=== PATIENT | male | born 1975 | race Caucasian/White ===

== ENCOUNTER 2016-07-09 18:17 | Observation (INO) | payer OTHER ==
[~2016-07-09] VITALS: Ht 165.1 cm; Wt 61.4 kg
[2016-07-09 18:45] VITALS: BP 133/91; PULSE 83; RESP 18; O2SAT 99
--- NOTE | 2016-07-09 19:22 | ED.REPORT ---
HPI-Chest Pain Under 40 Date of Service Jul 09, 2016 ED Provider: Ector Sanchez MD Pt is a 41 y.o. male who presents to the ED from c/o mid-sternal chest pain, worse with inspiration, onset 2 weeks ago. Pt reports associated intermittent fever (subjective) and cough. He denies leg pain, sore throat, rhinorrhea, and vomiting. He also denies recent travel, surgery, long periods of immobility, or recent sick contacts. Nursing Notes Stated Complaint: CHEST PAIN,TROUBLE BREATHING Chief Complaint: Chest Pain-Non Cardiac Nature Nursing Notes Reviewed: Yes Allergies: Coded Allergies: No Known Allergies (Unverified , 07/09/16) No Active Prescriptions or Reported Meds General Time Seen by MD: 19:22 Chief Complaint Chest pain Hx Obtained From: Patient Arrived By: Walk-in Sudden in Onset?: Yes Onset Occurred: More than a week ago... Symptom Duration: Since onset Location: : Substernal Quality: Painful Severity: Current: Moderate Similar Sx Previous: No Risk Factors )( PE Risk Stratification Risk factors reviewed Past Medical History Past Medical History Seasonal allergies PTSD hx of suicide attempts Reports: Depression Past Surgical History Reports: Appendectomy Smoking History Former Smoker Social History Alcohol Use: "Social" Drug Use: Denies drug use Occupation lives with . Works at [employer], not [employer] because of eye Ambulatory Status Independent Review of Systems Constitutional: Reports: Fever (Subjective) Respiratory: Reports: Non-productive cough Cardiovascular: Reports: Chest pain GI: Denies: Vomiting Musculoskeletal: Denies: Extremity pain Complete sys rev & neg: except as marked. Ears / Nose / Throat: Denies: Sore throat Allergy / Immune: Denies: Rhinorrhea Physical Exam Initial Vital Signs Vital Signs (First) Date Time Temp Pulse Resp B/P Pulse Ox O2 Delivery O2 Flow Rate FiO2 07/09/16 18:45 36.6 83 18 133/91 99 Initial VS: Reviewed Head / Eyes: Atraumatic, Normocephalic Abdomen / GI: No distention Extremities: Vascular intact, Neuro intact Skin: Warm, Dry, No cyanosis Neurologic: Alert, Oriented, Nonfocal Psychiatric: Mood/affect normal, Behavior normal, Normal thought content General/Constitutional: Awake, Alert, Well appearing, Well developed, Well hydrated Respiratory / Chest: Atraumatic, Breath sounds NL, Breath sounds = bilat, No respiratory distress, No rales, No rhonchi, No wheezing, No retractions, No stridor Cardiovascular: Regular rhythm, Heart sounds NL, No gallop, No murmurs, No rubs , Peripheral circulation NL Heart Rate / Rhythm: Positive: Tachycardia ENT: Atraumatic, Airway patent Dental / Gums: Positive: Dentition poor Interpretation & Diagnostics General Lab Results Interp 1: CBC - leukocytosis General Lab Results Interp 2: D-Dimer elevated CT Chest Interpretation IMPRESSION: 1. 2 nodules in the right upper lobe with indistinct margins. The findings are nonspecific and the differential includes atypical infection such as from septic emboli or fungal infection, inflammatory processes such as Frantz's, or neoplasm. Recommend correlation clinically and short-term followup to demonstrate resolution. 2. No evidence of central pulmonary embolism. Dictated by: Ramos Reese M.D. on 07/09/2016 at 20:24 Approved by: Ramos Reese M.D. on 07/09/2016 at 20:29 Re-Eval/Medical Decision Med Decision/Clinical Course 41-year-old male presenting complaining of pleuritic chest pain 2 weeks. Reports subjective fevers for one week. Evaluated in urgent care today and they performed extensive labs with normal troponins, white blood cell count 11,000, d-dimer 1.2. Labs are in the chart. Afebrile here. Sent over for CT angina chest which showed 2 right upper lobe nodules broad differential including septic emboli, atypical infection, inflammatory, Frantz's. Patient has very poor dentition but denies IV drug use. Cannot rule out septic emboli. Discussed with hospitalist and we will admit for echocardiogram in the morning. Blood cultures sent. Given one dose Rocephin, azithromycin. Source of Hx: Old records Re-Evaluation/Progress #1: Time of Eval: 21:04 Re-Evaluation/Progress Note: Pt rechecked. Discussed imaging results and recommendation of admit for work-up. Re-Evaluation/Progress #2: Time of Eval: 21:55 Re-Evaluation/Progress Note: Pt rechecked. Discussed plan to admit, pt understands and agrees with plan. Consultation : Referral / Consult Name: Nicole Willis DO Consulted With: Hospitalist Call Returned at: 21:48 Digital Advertising Specialist: Will see patient, Accepts admit Note: Consulted Dr. Willis about pt's CT results, she recommends admit for further work-up. Counseled Regarding: Diagnosis Discharge & Departure Primary Impression: Non-cardiac chest pain Additional Impression: Pulmonary nodules Disposition: ADMITTED TO HOSPITAL Discharge Condition All VS Reviewed: Yes Condition: Stable Referrals: NOPCP (PCP) [facility] Giovanna Attestation Portions of this note were transcribed by Bryce Esposito. I, Dr. Sanchez personally performed the history, physical exam and medical decision-making; I reviewed and confirmed the accuracy of the information in the transcribed note. Signed by: Giovanna Pacheco, 07/09/16 and 4167. copies to: [facility] Ector Sanchez MD Jul 09, 2016 19:22 BRYCE ESPOSITO Jul 09, 2016 19:40
[2016-07-09 19:23] VITALS: BP 123/87; PULSE 74; RESP 17; O2SAT 98
--- NOTE | 2016-07-09 20:31 | DRSVH ---
PROCEDURE: CT ANGIO CHEST PULMONARY EMBOLISM ([id number]) INDICATIONS: CHEST PAIN TECHNIQUE: After the administration of intravenous contrast, 2 mm thick sections acquired from the pulmonary api ben to the posterior costophrenic angles. 3-dimensional maximum intensity projection (MIP) coronal a nd sagittal reformats were then acquired through the thorax. For radiation dose reduction, the follo wing was used: automated exposure control, adjustment of mA and/or kV according to patient size. COMPARISON: [facility], CR, XR CHEST 2VW, 07/09/2016, 12:39. FINDINGS: Image quality: Excellent. Pulmonary arteries: Pulmonary arteries are normal in size, and demonstrate no intraluminal filling d efects to suggest central pulmonary embolism. Lungs and pleura: There are 2 nodular opacities in the right upper lobe with irregular indistinct ma rgins and peripheral groundglass opacity. These measure up to 1.5 cm and 1.2 cm. Mild dependent ate lectasis is also noted. No pleural effusions or pneumothorax. Central and peripheral airways are pa tent. Mediastinum: Heart size is normal, without pericardial effusion. No mediastinal or hilar adenopathy . Thoracic aorta is normal in caliber and enhancement. Esophagus is normal in caliber, without hiat al hernia. Bones and chest wall: No suspicious bony lesions. Ribs and thoracic spine appear intact throughout. No axillary or supraclavicular adenopathy. Abdomen: Visualized upper abdominal solid organs appear normal in the early arterial phase of enhanc ement. IMPRESSION: 1. 2 nodules in the right upper lobe with indistinct margins. The findings are nonspecific and the differential includes atypical infection such as from septic emboli or fungal infection, inflammatory processes such as Frantz's, or neoplasm. Recommend correlation clinically and short-term followup to demonstrate resolution. 2. No evidence of central pulmonary embolism. Dictated by: Ramos Reese M.D. on 07/09/2016 at 20:24 Approved by: Ramos Reese M.D. on 07/09/2016 at 20:29
[2016-07-09] MEDS ORDERED: Polyethylene Glycol (PEG) 17 Gm Powder PO PRN ×2 (21:55→23:55)
[2016-07-09] MEDS ORDERED: Ondansetron 2 mg/mL 2 mL Inj IVPUSH PRN ×2 (21:55→23:55)
[2016-07-09] MEDS ORDERED: Alum-Mag Hydrox-Simeth 30 mL Suspension PO PRN ×2 (21:55→23:55)
[2016-07-09] MEDS ORDERED: cefTRIAXone Inj 2,000 MG in Dextrose 5% Minibag Plus 50 ML IV ONE (22:00)
[2016-07-09] MEDS: Azithromycin Inj 500 MG in Dextrose 5% 250 ML IV ONE ×2 (22:42→23:28)
[2016-07-09 23:30] VITALS: BP 116/82; PULSE 89; RESP 20; O2SAT 98
[2016-07-09 23:41] VITALS: BP 128/85; PULSE 90; RESP 20; O2SAT 100
[2016-07-09 23:50] VITALS: PULSE 92
[2016-07-09] MEDS ORDERED: guaiFENesin DM 200-20 mg/10 mL Syrup PO PRN (23:55)
[2016-07-10] VITALS (8 sets, daily range): BP systolic 113–133; BP diastolic 69–86; PULSE 68–97; RESP 18–20; O2SAT 96–98
[2016-07-10] MEDS: Heparin 5,000 Unit/mL Inj SUBQ SCH ×3 (00:29→18:04)
--- NOTE | 2016-07-10 03:27 | PCM.HPMED ---
Subjective Date of Service Jul 10, 2016 Primary Provider: Admitting Physician: Nicole Willis DO Primary Care Physician: Marianela Attending Physician: Nicloe Willis DO Chief Complaint: Chest pain History of Present Illness: Patient is a 41-year-old male with no reported significant past medical history presenting as a referral from Urgent Care for chest pain. The patient is accompanied by his at bedside at time of visit. The patient reports onset of chest pain approximately one week ago. Patient's chest pain is mid-sternal and describes the pain as sharp and "constriction" like without radiation. Patient reports the pain is exacerbated by coughing and denies any similar pain in the past. Patient states the pain is not relieved by anything. Patient went to Urgent Care for evaluation and underwent chest x-ray, d-dimer and Troponin. Troponin was negative but d-dimer was 1.2 and the patient was subsequently referred to [facility] ED with concern of pulmonary embolism. CT chest angiography in the ED did not identify pulmonary embolism but identified two nodular opacities in the right upper lobe with irregular indistinct margins and peripheral groundglass opacity.Patient denies recent sick contacts. He has lived in [facility] and [place] most of his life without any recent travel. He currently owns several cats, guinea pigs and a ilia. Patient endorses fever and some shortness of breath but otherwise denies nausea, emesis, rhinorrhea, sore throat, hemoptysis, diaphoresis, lightheadedness, dizziness, rash, acute vision change. In the ED, vitals: temp 36.6, HR 83, BP 133/91. Labs from Urgent Care: WBC 11.4 , Hgb 13.5, Hct 40.6. platelets 403. Na 143, K 4.7, Cl 103, creatinine 0.67, glucose 95. AST 15, ALT 14, Alk phos 78. T bili 0.3. D-dimer 1.2, troponin< 0.010. Review of Systems: A comprehensive review of systems was conducted with the patient and found to be negative except as above in the History of Present Illness. Allergies Coded Allergies: No Known Allergies (Unverified , 07/09/16) Home Medications Ibuprofen PRN PMH None reported . Surgical History Appendectomy Family History Mother with diabetes is alive at 24-ifhld-upu Father in his 60s with Alzheimer's, CVA, MA and diabetes Social History Occupation: Works at [employer] Hx Alcohol Use: Yes (Seldom) Hx Substance Use: No Hx Tobacco Use: No Smoking Status: Former Smoker (Quit 2004) Living Arrangement: with Family Exam Vital Signs Vital Sign - Last Date Time Temp Pulse Resp B/P Pulse Ox O2 Delivery O2 Flow Rate FiO2 07/09/16 23:41 36.7 90 20 128/85 100 Room Air Exam General: Patient sitting upright in bed. No acute distress, well-developed, well -nourished, appropriately interactive HEENT: Normocephalic, atraumatic. External ears without defect. Pupils equal, round, and reactive to light and accommodation. Anicteric sclerae, moist conjunctivae, and no lid lag. Moist, pink mucosa. Poor dentition with decay. Neck: Supple. No lymphadenopathy or thyromegaly. Cardiovascular: Regular rate and rhythm with no murmurs, rubs, or gallops appreciated Pulmonary: Clear to auscultation bilaterally with no crackles, wheezes, or rhonchi. Normal respiratory effort with no use of accessory muscles. Cough on deep inspiratory effort. Abdomen: Bowel tones present. Soft, nontender, nondistended Extremities: No clubbing, cyanosis, edema, or lymphadenopathy appreciated. Skin: Mild erythematous rash on cheeks and across bridge of nose. Normal temperature, turgor, and texture; no rash, ulcers, or subcutaneous nodules appreciated. Neurological: Cranial nerves grossly intact. Psychiatric: Normal mood and affect. Alert and oriented to person, place, and time. Lab and Diagnostics X-Rays, CTs and MRIs Date of Service: 07/09/161922 PROCEDURE: CT ANGIO CHEST PULMONARY EMBOLISM ([id number]) INDICATIONS: CHEST PAIN TECHNIQUE: After the administration of intravenous contrast, 2 mm thick sections acquired from the pulmonary apices to the posterior costophrenic angles. 3-dimensional maximum intensity projection (MIP) coronal and sagittal reformats were then acquired through the thorax. For radiation dose reduction, the following was used: automated exposure control, adjustment of mA and/or kV according to patient size. COMPARISON: [facility], CR, XR CHEST 2VW, 07/09/2016, 12:39. FINDINGS: Image quality: Excellent. Pulmonary arteries: Pulmonary arteries are normal in size, and demonstrate no intraluminal filling defects to suggest central pulmonary embolism. Lungs and pleura: There are 2 nodular opacities in the right upper lobe with irregular indistinct margins and peripheral groundglass opacity. These measure up to 1.5 cm and 1.2 cm. Mild dependent atelectasis is also noted. No pleural effusions or pneumothorax. Central and peripheral airways are patent. Mediastinum: Heart size is normal, without pericardial effusion. No mediastinal or hilar adenopathy. Thoracic aorta is normal in caliber and enhancement. Esophagus is normal in caliber, without hiatal hernia. Bones and chest wall: No suspicious bony lesions. Ribs and thoracic spine appear intact throughout. No axillary or supraclavicular adenopathy. Abdomen: Visualized upper abdominal solid organs appear normal in the early arterial phase of enhancement. IMPRESSION: 1. 2 nodules in the right upper lobe with indistinct margins. The findings are nonspecific and the differential includes atypical infection such as from septic emboli or fungal infection, inflammatory processes such as Frantz's, or neoplasm. Recommend correlation clinically and short-term followup to demonstrate resolution. 2. No evidence of central pulmonary embolism. Dictated by: Ramos Reese M.D. on 07/09/2016 at 20:24 Approved by: Ramos Reese M.D. on 07/09/2016 at 20:29 Assessment & Plan Patient is a 41-year-old male with no reported significant past medical history presenting as a referral from Urgent Care for chest pain. 1. Acute chest pain. Present on admission. Active -EKG NSR with HR 88. No ST-elevation or depression. -Troponin<0.010. Repeat -Unlikely cardiac etiology. Possibly secondary to cough from URI -Telemetry -Echocardiogram 2. Right upper lobe pulmonary nodules seen on chest CT. Present on admission. Active -CT chest angio shows two nodular opacities in the right upper lobe with irregular indistinct margins and peripheral groundglass opacity -Etiology possibly infectious, malignancy, benign, low TB risk, minimal exposure aside from family pets, no recent weight loss -ECHO initial assessment septic emboli, no h/o IVDU however poor dentition -f/u BC 3. Acute cough. Present on admission. Active -Likely secondary to URI -Pending: Respiratory virus PCR, procalcitonin -Guaifenesin DM PRN -Continue azithromycin and ceftriaxone. De-escalate with results of pending studies Patient Status: Patient is admitted under observation status with expected length of stay less than 2 midnights due to risk of adverse event, and complexity of treatment plan. VTE Prophylaxis: Sub-Q Heparin (Unfractionated) Resuscitation Status: CPR: Attempt Resuscitation Attending Statement The patient was seen and examined together with house staff on 07/09/2016 and I agree with the history, exam and plan as outlined in the note above. Raheel Soares DO Jul 10, 2016 02:02 Nicole Willis DO Jul 10, 2016 04:03
--- NOTE | 2016-07-10 05:10 | NUR ---
NOC/Admit Observed pt having SOB and pain. States that it aggravates when he coughs or breath deeply. Pt states that the pain is localized and just on his ride side chest. Pt denies n/v or abd discomfort. Telemetry put on and on Sinus Rhythm 70 per monitor robert. VSS, afebrile overnight. Viral PCR and UA sent to lab. Will continue to monitor.
[2016-07-10 05:15] LABS: BASOPHILS % (AUTO) 0.2 % (0-3); EOSINOPHILS % (AUTO) 1.7 % (0-5); MONOCYTES % (AUTO) 9.2 % (4-12); Mean Corpuscular Hemoglobin 30.5 pg (27.0-35.0); Mean Corpuscular Volume 88.4 fL (81-100); NEUTROPHILS % (AUTO) 72.1 % (40-74); Platelet Count 356 bil/L (150-400)
[2016-07-10] MEDS ORDERED: Influenza (Adult) Vaccine 0.5 mL Syringe IM ONE (08:30)
--- NOTE | 2016-07-10 12:51 | DRSVH ---
Formerly [facility] [address] [place] [address] Echocardiogram Report Name: JOCELYNE HENSLEY RStudy Date: 07/10/2016 Height: 65 in Hospital Exam Location: [facility] Weight: 135 lb Gender: Male BSA: 1.7 m2 : 1975 Age: 41 yrs BP: 118/69 mmHg Reason For Study: Chest pain Ordering Physician: Performed By: Buddy Flores Referring Physician: SARA GIPSON Interpretation Summary The left ventricle is normal in size, wall thickness, and systolic function without any focal wall motion abnormalities. The ejection fraction is estimated to be 60-65%. The right ventricle is normal in size, thickness and function. Pulmonary artery pressures cannot be estimated because of the lack of a measurable TR jet velocity. The left atrial size is normal. Right atrium is small. There is no significant valvular heart disease. The aortic root is normal size. Procedure: A two-dimensional transthoracic echocardiogram with color flow and Doppler was performed. The study quality was technically adequate. There is no prior echocardiogram noted for this patient. The patient was in normal sinus rhythm during the exam. Left Ventricle: The left ventricle is normal in size, wall thickness, and systolic function without any focal wall motion abnormalities. The ejection fraction is estimated to be 60-65%. Assessment of diastolic parameters indicates normal left ventricular diastolic function and normal filling pressures. Right Ventricle: The right ventricle is normal in size, thickness and function. Atria: The left atrial size is normal. Right atrium is small. The interatrial septum is intact with no evidence for an atrial septal defect. Mitral Valve: The mitral valve is normal. There is no mitral regurgitation noted. Aortic Valve: The aortic valve is normal in structure and function. No aortic regurgitation is present. Tricuspid Valve: The tricuspid valve is normal. Pulmonary artery pressures cannot be estimated because of the lack of a measurable TR jet velocity. Pulmonic Valve: The pulmonic valve leaflets are thin and pliable; valve motion is normal. There is a trace or physiologic amount of pulmonic regurgitation. There is no significant valvular heart disease. Great Vessels: The aortic root is normal size. The dimensions of the ascending aorta are normal. The pulmonary artery is normal size. The IVC is of normal diameter and collapses greater than 50% with a sniff. This suggests a low right atrial pressure of 3 mm Hg. Pericardium/ Pleura There is no pericardial effusion. There is no pleural effusion. MMode/2D Measurements & Calculations LVIDd: 4.2 cm RA long axis LVOT diam: 2.1 cm LVIDs: 3.0 cm LA A2 area: 11.9 cm AoV Opening FS: 28.5 % LA A4 area: 14.4 cm RA area IVSd: 0.83 cm LA length (vol) Ao root diam LVPWd: 0.74 cm : 10.8 cm LA vol: 35.9 ml RA vol asc Aorta Diam LA vol index : 22.5 ml RA Ao Arch Diam (Prox : 21.5 ml/m2 : 13.5 mm2 Trans): 2.5 cm LV thacker. diameter/BSA LV sys. diameter/BSA (cm/m^2): 2.5 (cm/m^2): 1.8 Doppler Measurements & Calculations Ao V2 max: 109.5 cm/sec MV E max tesfaye MV E/A: 1.6 PA V2 max Ao max P.8 mmHg : 65.4 cm/sec : 78.9 cm/sec Ao mean P.7 mmHg MV A max tesfaye PA mean PG LVOT Max Tesfaye : 40.5 cm/sec : 1.3 mmHg : 100.3 cm/sec MIS(I,D): 3.0 cm sev ratio: 0.86 MV dec time: 0.12 sec Ao V2 mean LV V1 max PG PA V2 mean : 77.8 cm/sec : 56.1 cm/sec Ao V2 VTI: 19.9 cmLV V1 VTI PA pr(Accel) MIS(V,D): 3.2 cm2 : 17.2 cm : 24.5 mmHg MIS indexed to BSA (cm^2/m^2): 1.8 Reading Physician:UMM
--- NOTE | 2016-07-10 14:29 | NUR ---
Social Work Screen Note: SW met with patient at bedside to discuss discharge plan. Patient is a 41 year old male admitted under observation status on 07/09/16 for chest pain. Patient listed as Self pay but patient presented SW with ID card information of BS:[id number]. Patient states having no PCP. Patient states residing in [facility] with significant other , . Patient states pharmacy of choice as [facility]. Patient states having no move coordinator disability insurance nor VA benefits. Patient has no previous HHC, SNF, DME, or AD history. Patient states being independent with needs and has no anticipated discharge needs at this time. SW contacted admitting and left voice mail message regarding patient insurance information. SW to follow. PLAN: Home with SO, via POV. No anticipated discharge needs at this time. SW will continue to follow. Brandon LEISE
--- NOTE | 2016-07-10 17:05 | PCM.PNMED ---
Subjective Date of Service Jul 10, 2016 Subjective Patient reports that he continues extreme experience chest pain, which she describes as a constricting type sensation. He reports that the pain is also noted in the middle of his sternum without any radiation. He states that the pain is constant and worsens with any cough, sneeze, movement. Patient denies any change in his pain from the previous day. Patient denies any drug use. Patient states that the pain has been present for the past 1 week and has not seen any improvement. Patient denies any shortness of breath, nausea, vomiting , diarrhea, fever or chills. Exam Vital Signs Vital Sign - Last Date Time Temp Pulse Resp B/P Pulse Ox O2 Delivery O2 Flow Rate FiO2 07/10/16 16:28 36.3 79 18 113/74 97 Room Air Exam General: No acute distress, well-developed, well-nourished, appropriately interactive HEENT: Normocephalic, atraumatic. External ears without defect. Anicteric sclerae, moist conjunctivae. Moist, pink mucosa. Poor dentition with decay and numerous missing teeth Neck: Supple. Cardiovascular: Regular rate and rhythm. Possible mild systolic murmur auscultated- best heard at the left upper sternal edge. No rubs or gallops appreciated Pulmonary: Clear to auscultation bilaterally with no crackles, wheezes, or rhonchi. Normal respiratory effort with no use of accessory muscles. Abdomen: Bowel tones present. Soft, nontender, nondistended Extremities: No clubbing, cyanosis, edema Skin: Normal temperature, turgor, and texture; no rash, ulcers, or subcutaneous nodules appreciated. Psychiatric: Normal mood and affect. Alert and oriented to person, place, and time. IVs and Medications Medications Reviewed: Medications were reviewed in detail Lab and Diagnostics Result Diagram: 07/10/16 0500 07/10/16 0500 X-Rays, CTs and MRIs Date of Service: 07/09/161922 PROCEDURE: CT ANGIO CHEST PULMONARY EMBOLISM ([id number]) INDICATIONS: CHEST PAIN TECHNIQUE: After the administration of intravenous contrast, 2 mm thick sections acquired from the pulmonary apices to the posterior costophrenic angles. 3-dimensional maximum intensity projection (MIP) coronal and sagittal reformats were then acquired through the thorax. For radiation dose reduction, the following was used: automated exposure control, adjustment of mA and/or kV according to patient size. COMPARISON: [facility], CR, XR CHEST 2VW, 07/09/2016, 12:39. FINDINGS: Image quality: Excellent. Pulmonary arteries: Pulmonary arteries are normal in size, and demonstrate no intraluminal filling defects to suggest central pulmonary embolism. Lungs and pleura: There are 2 nodular opacities in the right upper lobe with irregular indistinct margins and peripheral groundglass opacity. These measure up to 1.5 cm and 1.2 cm. Mild dependent atelectasis is also noted. No pleural effusions or pneumothorax. Central and peripheral airways are patent. Mediastinum: Heart size is normal, without pericardial effusion. No mediastinal or hilar adenopathy. Thoracic aorta is normal in caliber and enhancement. Esophagus is normal in caliber, without hiatal hernia. Bones and chest wall: No suspicious bony lesions. Ribs and thoracic spine appear intact throughout. No axillary or supraclavicular adenopathy. Abdomen: Visualized upper abdominal solid organs appear normal in the early arterial phase of enhancement. IMPRESSION: 1. 2 nodules in the right upper lobe with indistinct margins. The findings are nonspecific and the differential includes atypical infection such as from septic emboli or fungal infection, inflammatory processes such as Frantz's, or neoplasm. Recommend correlation clinically and short-term followup to demonstrate resolution. 2. No evidence of central pulmonary embolism. Dictated by: Ramos Reese M.D. on 07/09/2016 at 20:24 Approved by: Ramos Reese M.D. on 07/09/2016 at 20:29 Assessment & Plan Patient is a 41-year-old male with no reported significant past medical history presenting as a referral from Urgent Care for chest pain. 1. Acute chest pain. Present on admission. Active -EKG NSR with HR 88. No ST-elevation or depression. -Troponin negative 2 continuing to trend every 6 -Unlikely cardiac etiology. Possibly secondary to cough from URI -Telemetry -Echocardiogram-demonstrating no valvular disease and normal EF of 60-65% -Exercise stress test ordered -Pt started on daily aspirin 81 mg -CRP ordered and UDS 2. Right upper lobe pulmonary nodules seen on chest CT. Present on admission. Active -CT chest angio shows two nodular opacities in the right upper lobe with irregular indistinct margins and peripheral groundglass opacity -Etiology possibly infectious, malignancy, benign, low TB risk, minimal exposure aside from family pets, no recent weight loss -ECHO -demonstrating no valvular disease and normal EF of 6065% -Blood cultures with no growth to date 3. Acute cough. Present on admission. Active -Likely secondary to URI -Respiratory panel negative, strep pneumo negative, Legionella negative -Guaifenesin DM PRN -Continue antibiotics, and switch to by mouth levofloxacin before discharge Patient Status: Patient is admitted under observation status with expected length of stay less than 2 midnights due to risk of adverse event, and complexity of treatment plan. VTE Prophylaxis: Sub-Q Heparin (Unfractionated) Resuscitation Status: CPR: Attempt Resuscitation Attending Statement The patient was seen and examined together with Dr. Carcamo on 07/10/2016 and I agree with the history, exam and plan as outlined in the note above. Patience Carcamo DO Jul 10, 2016 17:05 César Wolfe MD Jul 11, 2016 12:50
--- NOTE | 2016-07-10 19:59 | NUR ---
Pain Patient reporting continued chest pain, increasing with cough or deep breathing. Patient also reporting "a caffeine headache". Patient has intermittent, non-productive cough. Refused guaifenesin. Addendum: 07/10/16 at 2006 by CONSTANTINE KELLY RN Patient unable to have stress test due to caffeine intake this morning.
[2016-07-10] MEDS ORDERED: cefTRIAXone Inj 2,000 MG in Dextrose 5% Minibag Plus 50 ML IV SCH (22:00)
[2016-07-11 00:29] VITALS: BP 109/66; PULSE 75; RESP 18; O2SAT 98
[2016-07-11] MEDS: Heparin 5,000 Unit/mL Inj SUBQ SCH ×3 (01:02→16:30)
[2016-07-11 01:35] VITALS: PULSE 72
[2016-07-11 02:50] LABS: BASOPHILS % (AUTO) 0.5 % (0-3); EOSINOPHILS % (AUTO) 2.9 % (0-5); MONOCYTES % (AUTO) 9.5 % (4-12); Mean Corpuscular Hemoglobin 29.6 pg (27.0-35.0); Mean Corpuscular Volume 88.3 fL (81-100); NEUTROPHILS % (AUTO) 66.7 % (40-74); Platelet Count 400 bil/L (150-400)
[2016-07-11 04:00] VITALS: PULSE 77
[2016-07-11 05:17] VITALS: BP 119/77; PULSE 72; RESP 18; O2SAT 97
--- NOTE | 2016-07-11 06:29 | NUR ---
Chest pain free: Pt stable throughout the night. No complaints of chest pain. Pt's only complaint has been a headache r/t being off of caffeine. SR on the monitor. Pt NPO. Troponins negative.
[2016-07-11 11:02] VITALS: PULSE 80
--- NOTE | 2016-07-11 12:19 | DRSVH ---
PROCEDURE: 1 DAY TREADMILL STRESS TEST Rest and exercise myocardial perfusion SPECT with gated imaging and ejection fraction RADIOPHARMACEUTICAL: 8.7 mCi Tc-99m tetrafosmin IV at rest and 25.5 mCi Tc-99m tetrafosmin IV at peak exercise. [id number] was performed. INDICATIONS: 41-year-old man with chest pain. The patient has history of coronary artery disease. He is a formal smoker. TECHNIQUE: Radiopharmaceutical was injected at peak stress test, and also at rest. SPECT images wer e obtained. SPECT myocardial perfusion images were displayed in short axis, horizontal long axis, an d vertical long axis views. Gated images were reviewed using [employer] software. COMPARISON: None. CARDIAC STRESS: A standard Tor treadmill exercise tolerance test was performed by the patient under the supervision of an attending staff. The patient exercised for 10 minutes and 19 seconds; functional aerobic impa irment (SHEN) is +20 %. Hemodynamic data: There is normal blood pressure and heart rate response to exercise stress. Patien t achieved 104% of maximum predicted heart rate at peak exercise. Symptoms: Patient had mid to right chest pressure chest with deep inspiration only during exercise, which was resolved in recovery. EKG: No diagnostic EKG changes of ischemia; occasional PVCs. FINDINGS: Raw data: There is good myocardial labeling by radiotracer. No significant motion artifacts. Left ventricle function: Gated images demonstrate normal left ventricle wall thickening. No segment al wall motion abnormality. No transient ischemic dilation. The left ventricle resting end-diastoli c volume is normal. Left ventricle stress ejection fraction is greater than 70%; normal values are a kamille 45%. Myocardial perfusion: There is normal distribution of activity in the left and right ventricular mikel cardium. No fixed or reversible perfusion defects. IMPRESSION: 1. Normal myocardial perfusion images. 2. Normal left ventricular volume and systolic function. 3. Reduced exercise capacity. Patient had mid to right sternal chest pressure during exercise with de ep inspiration. No diagnostic EKG changes for ischemia. PQRS ATTESTATIONS: Measure 322 - Is this imaging test primarily performed on a low-risk surgery patient for preoperative evaluation within 30 days preceding their low-risk non-cardiac surgery? Low-risk surgery is defined as cardiac or myocardial infarction less than 1%, including (but not limited to) endoscopic pr ocedures, superficial procedures, cataract surgery, and excisional breast surgery: Answer: No Measure 323 - Is this imaging test performed primarily for the monitoring of an asymptomatic patient who had percutaneous coronary intervention on the visit date or within 2 years of the visit date? An swer: No Measure 324 - Is this imaging test performed primarily for the initial detection and risk assessment on an asymptomatic, low coronary heart disease patient? Low CHD risk definition = clinicians should consider the maximum number of available patient factors used to estimate risk based on [place] (A TP III criteria), typically age, gender, diabetes, smoking status, and use of blood pressure medicati on, and integrate age appropriate estimates for missing elements, such as LDL or standard blood press ure. Answer: No Dictated by: Myke Breen M.D. on 07/11/2016 at 12:10 Approved by: Myke Breen M.D. on 07/11/2016 at 12:17
[2016-07-11 14:12] VITALS: BP 136/70; PULSE 92; RESP 18; O2SAT 96
[2016-07-11] MEDS ORDERED: LEVO750T39 PO (14:40)
--- NOTE | 2016-07-11 14:44 | PCM.DIMED ---
Patience Carcamo DO 07/11/16 1444: Discharge Instructions Date of Service Jul 11, 2016 Dates of Hospitalization Jul 09, 2016 at 22:23 Discharge Diagnosis Discharge Diagnosis 1. Acute chest pain. Present on admission. Active 2. Right upper lobe pulmonary nodules seen on chest CT. Present on admission. Active 3. Acute cough. Present on admission. Active Diet No restrictions Activity No restrictions Call your provider Fever or Chills, Shortness of breath, Bleeding, Chest pain, Vomitting, Excessive diarrhea, Weakness (unilateral), Other Patient Instructions Your stress test was normal. We think your chest is likely due to your coughing. We are prescribing a course of antibiotics to be taken for the next 6 days, to complete a 7 days course of treatment. Please follow up with your primary care provider. Follow-up Provider: César Villegas MD 07/19/16 1411: Patience Carcamo DO Jul 11, 2016 14:44 César Wolfe MD Jul 19, 2016 14:11
--- NOTE | 2016-07-11 14:54 | NUR ---
Social Work: Discharge Data: Pt is on day 2 of hospitalization. EMR reviewed. D/C orders are in. No further d/c planning needs anticipated at this time. [employer] will continue to follow if needs arise. Assessment: Pt who is independent at baseline. Plan: Pt will d/c home via POV today. No further d/c planning needs anticipated at this time. [employer] will continue to follow if needs arise. GOSIA Baird
--- NOTE | 2016-07-11 18:04 | NUR ---
Discharge Patient ambulated from unit accompanied by staff and family. Patient alert and oriented x 3. Denies current chest pain shortness of breath or nausea. Exhibiting good appetite and elimination. Ambulating independently in room. Discharge instructions/medications reviewed with patient/family prior to discharge. All questions addressed. Patient belongings, discharge instructions and medications in hand.
--- NOTE | 2016-07-12 22:36 | PCM.DC.MED ---
Discharge Summary Date of Service Jul 12, 2016 Dates of Hospitalization Date of Hospital Admission Jul 09, 2016 at 22:23 Date of Discharge: Jul 11, 2016 Providers: Admitting Physician: Nicole Willis DO Primary Care Physician: Nopcp Attending Physician: Nicole Willis DO Diagnosis at Time of Discharge Diagnosis at Time of Discharge 1. Acute chest pain. Present on admission. Active 2. Right upper lobe pulmonary nodules seen on chest CT. Present on admission. Active 3. Acute cough. Present on admission. Active Procedures XRay, CTs & MRIs Date of Service: 07/09/161922 PROCEDURE: CT ANGIO CHEST PULMONARY EMBOLISM ([id number]) INDICATIONS: CHEST PAIN TECHNIQUE: After the administration of intravenous contrast, 2 mm thick sections acquired from the pulmonary apices to the posterior costophrenic angles. 3-dimensional maximum intensity projection (MIP) coronal and sagittal reformats were then acquired through the thorax. For radiation dose reduction, the following was used: automated exposure control, adjustment of mA and/or kV according to patient size. COMPARISON: [facility], , XR CHEST 2VW, 07/09/2016, 12:39. FINDINGS: Image quality: Excellent. Pulmonary arteries: Pulmonary arteries are normal in size, and demonstrate no intraluminal filling defects to suggest central pulmonary embolism. Lungs and pleura: There are 2 nodular opacities in the right upper lobe with irregular indistinct margins and peripheral groundglass opacity. These measure up to 1.5 cm and 1.2 cm. Mild dependent atelectasis is also noted. No pleural effusions or pneumothorax. Central and peripheral airways are patent. Mediastinum: Heart size is normal, without pericardial effusion. No mediastinal or hilar adenopathy. Thoracic aorta is normal in caliber and enhancement. Esophagus is normal in caliber, without hiatal hernia. Bones and chest wall: No suspicious bony lesions. Ribs and thoracic spine appear intact throughout. No axillary or supraclavicular adenopathy. Abdomen: Visualized upper abdominal solid organs appear normal in the early arterial phase of enhancement. IMPRESSION: 1. 2 nodules in the right upper lobe with indistinct margins. The findings are nonspecific and the differential includes atypical infection such as from septic emboli or fungal infection, inflammatory processes such as Frantz's, or neoplasm. Recommend correlation clinically and short-term followup to demonstrate resolution. 2. No evidence of central pulmonary embolism. Dictated by: Ramos Reese M.D. on 07/09/2016 at 20:24 Approved by: Ramos Reese M.D. on 07/09/2016 at 20:29 Cardiac Echo Impression Interpretation Summary The left ventricle is normal in size, wall thickness, and systolic function without any focal wall motion abnormalities. The ejection fraction is estimated to be 60-65%. The right ventricle is normal in size, thickness and function. Pulmonary artery pressures cannot be estimated because of the lack of a measurable TR jet velocity. The left atrial size is normal. Right atrium is small. There is no significant valvular heart disease. The aortic root is normal size. Other Diagnostics PROCEDURE: 1 DAY TREADMILL STRESS TEST Rest and exercise myocardial perfusion SPECT with gated imaging and ejection fraction RADIOPHARMACEUTICAL: 8.7 mCi Tc-99m tetrafosmin IV at rest and 25.5 mCi Tc-99m tetrafosmin IV at peak exercise. [id number] was performed. INDICATIONS: 41-year-old man with chest pain. The patient has history of coronary artery disease. He is a formal smoker. TECHNIQUE: Radiopharmaceutical was injected at peak stress test, and also at rest. SPECT images were obtained. SPECT myocardial perfusion images were displayed in short axis, horizontal long axis, and vertical long axis views. Gated images were reviewed using Attentio software. COMPARISON: None. CARDIAC STRESS: A standard Tor treadmill exercise tolerance test was performed by the patient under the supervision of an attending staff. The patient exercised for 10 minutes and 19 seconds; functional aerobic impairment (SHEN) is +20 %. Hemodynamic data: There is normal blood pressure and heart rate response to exercise stress. Patient achieved 104% of maximum predicted heart rate at peak exercise. Symptoms: Patient had mid to right chest pressure chest with deep inspiration only during exercise, which was resolved in recovery. EKG: No diagnostic EKG changes of ischemia; occasional PVCs. FINDINGS: Raw data: There is good myocardial labeling by radiotracer. No significant motion artifacts. Left ventricle function: Gated images demonstrate normal left ventricle wall thickening. No segmental wall motion abnormality. No transient ischemic dilation. The left ventricle resting end-diastolic volume is normal. Left ventricle stress ejection fraction is greater than 70%; normal values are above 45%. Myocardial perfusion: There is normal distribution of activity in the left and right ventricular myocardium. No fixed or reversible perfusion defects. IMPRESSION: 1. Normal myocardial perfusion images. 2. Normal left ventricular volume and systolic function. 3. Reduced exercise capacity. Patient had mid to right sternal chest pressure during exercise with deep inspiration. No diagnostic EKG changes for ischemia. PQRS ATTESTATIONS: Measure 322 - Is this imaging test primarily performed on a low-risk surgery patient for preoperative evaluation within 30 days preceding their low-risk non- cardiac surgery? Low-risk surgery is defined as cardiac or myocardial infarction less than 1%, including (but not limited to) endoscopic procedures, superficial procedures, cataract surgery, and excisional breast surgery: Answer : No Measure 323 - Is this imaging test performed primarily for the monitoring of an asymptomatic patient who had percutaneous coronary intervention on the visit date or within 2 years of the visit date? Answer: No Measure 324 - Is this imaging test performed primarily for the initial detection and risk assessment on an asymptomatic, low coronary heart disease patient? Low CHD risk definition = clinicians should consider the maximum number of available patient factors used to estimate risk based on [place] ( ATP III criteria), typically age, gender, diabetes, smoking status, and use of blood pressure medication, and integrate age appropriate estimates for missing elements, such as LDL or standard blood pressure. Answer: No Dictated by: Myke Breen M.D. on 07/11/2016 at 12:10 Approved by: Myke Breen M.D. on 07/11/2016 at 12:[address] Soares's H&P "Patient is a 41-year-old male with no reported significant past medical history presenting as a referral from Urgent Care for chest pain. The patient is accompanied by his at bedside at time of visit. The patient reports onset of chest pain approximately one week ago. Patient's chest pain is mid- sternal and describes the pain as sharp and "constriction" like without radiation. Patient reports the pain is exacerbated by coughing and denies any similar pain in the past. Patient states the pain is not relieved by anything. Patient went to Urgent Care for evaluation and underwent chest x-ray, d-dimer and Troponin. Troponin was negative but d-dimer was 1.2 and the patient was subsequently referred to [facility] ED with concern of pulmonary embolism. CT chest angiography in the ED did not identify pulmonary embolism but identified two nodular opacities in the right upper lobe with irregular indistinct margins and peripheral groundglass opacity.Patient denies recent sick contacts. He has lived in [facility] and [place] most of his life without any recent travel. He currently owns several cats, guinea pigs and a ilia. Patient endorses fever and some shortness of breath but otherwise denies nausea, emesis , rhinorrhea, sore throat, hemoptysis, diaphoresis, lightheadedness, dizziness, rash, acute vision change. In the ED, vitals: temp 36.6, HR 83, BP 133/91. Labs from Urgent Care: WBC 11.4 , Hgb 13.5, Hct 40.6. platelets 403. Na 143, K 4.7, Cl 103, creatinine 0.67, glucose 95. AST 15, ALT 14, Alk phos 78. T bili 0.3. D-dimer 1.2, troponin< 0.010." Hospital Course Patient is a 41-year-old male with no reported significant past medical history presenting as a referral from Urgent Care for chest pain. 1. Acute chest pain. Present on admission. Active -EKG NSR with HR 88. No ST-elevation or depression. -Troponin negative 2 -Unlikely cardiac etiology. Possibly secondary to cough from URI -Echocardiogram-demonstrating no valvular disease and normal EF of 60-65% -Exercise stress test normal -Pt started on daily aspirin 81 mg 2. Right upper lobe pulmonary nodules seen on chest CT. Present on admission. Active -CT chest angio shows two nodular opacities in the right upper lobe with irregular indistinct margins and peripheral groundglass opacity -Etiology possibly infectious, malignancy, benign, low TB risk, minimal exposure aside from family pets, no recent weight loss -ECHO -demonstrating no valvular disease and normal EF of 6065% -Blood cultures with no growth to date 3. Acute cough. Present on admission. Active -Likely secondary to URI -Respiratory panel negative, strep pneumo negative, Legionella negative -Pt discharged on PO Levaquin, for complete course of 7 days. Exam Vital Signs (Last) Date Time Temp Pulse Resp B/P Pulse Ox O2 Delivery O2 Flow Rate FiO2 07/11/16 14:12 36.5 92 18 136/70 96 Room Air Exam General: No acute distress, well-developed, well-nourished, appropriately interactive HEENT: Normocephalic, atraumatic. External ears without defect. Anicteric sclerae, moist conjunctivae. Moist, pink mucosa. Poor dentition with decay and numerous missing teeth Neck: Supple. Cardiovascular: Regular rate and rhythm. Possible mild systolic murmur auscultated- best heard at the left upper sternal edge. No rubs or gallops appreciated Pulmonary: Clear to auscultation bilaterally with no crackles, wheezes, or rhonchi. Normal respiratory effort with no use of accessory muscles. Abdomen: Bowel tones present. Soft, nontender, nondistended Extremities: No clubbing, cyanosis, edema Skin: Normal temperature, turgor, and texture; no rash, ulcers, or subcutaneous nodules appreciated. Psychiatric: Normal mood and affect. Alert and oriented to person, place, and time. Test 07/10/16 00:30 07/10/16 00:35 07/10/16 01:15 07/10/16 05:00 Urine Legionella pneumophilia Ag Negative (Negative) Hold Urine Received (Received) Urine Opiates Screen Negative Urine Methadone Screen Negative Urine Barbiturates Screen Negative Urine Amphetamines Screen Negative Urine Benzodiazepines Screen Negative Urine Cocaine Metabolite Screen Negative Urine Cannabinoids Screen Negative Procalcitonin 0.06ng/mL (0.00-0.08) C-Reactive Protein 2.0mg/dL (0.0-0.5) Test 07/11/16 02:30 White Blood Count 7.7th/mm3 (3.8-10.1) Red Blood Count 4.46mil/mm3 (4.40-5.80) Hemoglobin 13.2g/dL (13.8-17.2) Hematocrit 39.4% (41.0-50.0) Mean Corpuscular Volume 88.3fL (81-100) Mean Corpuscular Hemoglobin 29.6pg (27.0-35.0) Mean Corpuscular Hemoglobin Concent 33.5% (32.0-37.0) Red Cell Distribution Width 13.2% (12.3-15.4) Platelet Count 400bil/L (150-400) Neutrophils (%) (Auto) 66.7% (40-74) Lymphocytes (%) (Auto) 20.3% (14-46) Monocytes (%) (Auto) 9.5% (4-12) Eosinophils (%) (Auto) 2.9% (0-5) Basophils (%) (Auto) 0.5% (0-3) Sodium Level 143mEq/L (134-144) Potassium Level 4.5mEq/L (3.5-5.2) Chloride Level 100mEq/L (97-108) Carbon Dioxide Level 27mmol/L (18-29) Blood Urea Nitrogen 15mg/dL (6-20) Creatinine 0.72mg/dL (0.76-1.27) Estimat Glomerular Filtration Rate 129mL/min (>59) Glucose Level 95mg/dL (60-99) Calcium Level 9.4mg/dL (8.5-10.1) Total Bilirubin 0.3mg/dL (0.0-1.2) Aspartate Amino Transf (AST/SGOT) 14U/L (0-50) Alanine Aminotransferase (ALT/SGPT) 12U/L (0-44) Alkaline Phosphatase 77U/L (25-150) Troponin T 0.010ug/L (0.0-0.011) Total Protein 7.5g/dL (6.4-8.4) Albumin 4.4g/dL (3.4-5.0) Discharge Medications Discharge Medications Levofloxacin (Levofloxacin) 750 Mg Tablet 750 MG PO DAILY Prescribed by: LORETA MELARA DO Followup Plan Discharge Diet: No restrictions Discharge Activity: No restrictions Patient Instructions Your stress test was normal. We think your chest is likely due to your coughing. We are prescribing a course of antibiotics to be taken for the next 6 days, to complete a 7 days course of treatment. Please follow up with your primary care provider. Follow-up Provider: NOPCP Attending Statement The patient was seen and examined together with Dr. Melara on 07/11/2016 and I agree with the history, exam and plan as outlined in the note above. Loreta Melara DO Jul 12, 2016 22:36 César Wolfe MD Jul 19, 2016 14:11
== END 2016-07-11 18:06 | disposition home or self-care (01) ==
LOC: SED 18:17 → MPC 22:23
PROVIDERS: ADMIT Internal Medicine; ATTEND Internal Medicine
DX: R07.9 Chest pain, unspecified (principal); R91.8 Other nonspecific abnormal finding of lung field; R05 Cough; J30.2 Other seasonal allergic rhinitis; F43.10 Post-traumatic stress disorder, unspecified; F32.9 Major depressive disorder, single episode, unspecified; Z87.891 Personal history of nicotine dependence; Z23 Encounter for immunization
CPT/HCPCS: 36415; 71275; 78452; 80048; 80053; 82308; 84484; 85025; 86140; 86403; 87040; 87449; 87633; 90471; 93017; 96365; 96366; 96367; 99285; A9502; C8929; G0378; G0480; J0456; J0696; J1644; Q2039; Q9967